=== PATIENT | female | born 1990 | race Two or more races ===

== ENCOUNTER 2017-12-23 11:08 | Emergency (ER) | payer OTHER ==
[~2017-12-23] VITALS: Ht 170.2 cm; Wt 84.4 kg
[2017-12-23 11:12] VITALS: BP 130/80; Ht 170.2 cm; Wt 84.4 kg
== END 2017-12-23 12:14 | disposition home or self-care (01) ==
LOC: ED 11:08
DX: L50.9 Urticaria, unspecified (principal)